=== PATIENT | female | born 1995 | race Caucasian/White ===

== ENCOUNTER 2018-03-01 21:02 | Emergency (ER) | payer OTHER ==
[~2018-03-01] VITALS: Ht 152.4 cm; Wt 49.9 kg
[~2018-03-01 21:02] MED LIST: AMOXICILLIN 50500 MG PO; CYCLOBENZAPRINE5 MG PO; HUMALOG100 UNIT/1; HYDROCODONE-AP1 EAC6 PO; IBUPROFEN 600600 M1 PO; IBUPROFEN 800800 MG PO; LANTUS100 UNIT/M SUBQ; LIDOCAINE VISC100 ML SWISH&SPIT; METHADOSE40 MG PO
[2018-03-01] MEDS ORDERED: NOVOLOG100 UNIT/1 (21:22)
[2018-03-01] MEDS ORDERED: HUMALOG100 UNIT/1 (21:23)
[2018-03-01] MEDS ORDERED: IBUPROFEN 600600 M1 PO (22:52)
[2018-03-01 23:16] VITALS: BP 111/71
== END 2018-03-01 23:16 | disposition home or self-care (01) ==
LOC: M.ERS 21:02
DX: S83.8X2A Sprain of other specified parts of left knee, initial encounter (principal); F17.200 Nicotine dependence, unspecified, uncomplicated; E11.40 Type 2 diabetes mellitus with diabetic neuropathy, unspecified; Z79.4 Long term (current) use of insulin; Y04.8XXA Assault by other bodily force, initial encounter; Y93.89 Activity, other specified; Y92.89 Other specified places as the place of occurrence of the external cause; Y99.8 Other external cause status